=== PATIENT | male | born 1940 ===

== ENCOUNTER 2024-05-21 08:09 | Observation (INO) ==
[~2024-05-21 08:09] MED LIST: Metoclopramide 5 MG/ML VIAL (10 mg) IV PRN; NS 0.45% 1000 ml BAG 1,000 ML IV SCH; Naloxone 0.4 mg VIAL 0.4 mg/ml 1 ml VIAL IV PRN; Ondansetron 4 mg VIAL 2 MG/ML 2 ml VIAL IV PRN; fentaNYL 100 mcg/2 ml 50 MCG/ML VIAL IV PRN
[2024-05-21] MEDS ORDERED: Ondansetron 4 mg VIAL 2 MG/ML 2 ml VIAL IV PRN (09:05)
[2024-05-21 09:16] LABS: Rapid COVID-19 Molecular Undetected (Undetected)
[2024-05-21] MEDS ORDERED: fentaNYL 100 mcg/2 ml 50 MCG/ML VIAL ONE ×2 (09:33→11:28)
[2024-05-21] MEDS ORDERED: Propofol 10 MG/ML 20 ML BTL ONE ×2 (09:33→10:41)
[2024-05-21] MEDS ORDERED: Midazolam 2 mg/2 ml VIAL 1 mg/ml 2 ml VIAL (2 mg) ONE (09:33)
[2024-05-21] MEDS ORDERED: Lidocaine 2% PF 5 ML VIAL ONE (09:33)
[2024-05-21] MEDS: Buffered Lidocaine 1% SYRIN 1 ml INTRADERM ONE (09:34)
[2024-05-21] MEDS: Lactated Ringers 1000 ml BAG 1,000 ML IV SCH (09:34)
[2024-05-21] MEDS: Scopolamine 1 mg/72hr PATCH TRANSDERM ONE (09:35)
[2024-05-21] MEDS ORDERED: BELLADONNA/OPIUM Rectal SUPP 1 EACH SUPP PR ONE ×2 (09:53→12:26)
[2024-05-21] MEDS ORDERED: Ondansetron 4 mg VIAL 2 MG/ML 2 ml VIAL ONE (10:41)
[2024-05-21] MEDS ORDERED: Dexamethasone IV 4 MG/ML VIAL 1 ml VIAL ONE (10:41)
[2024-05-21] MEDS ORDERED: Dextrose 50% Syringe 50 ml 25 GM/50 ML SYRINGE IV PUSH PRN (14:12)
[2024-05-21] MEDS: Acetaminophen IV 1 GM/100ML 1,000 MG/100 ML BAG IV ONE (14:41)
[2024-05-21] MEDS: Ampicillin ADVAN 2 GM in NS 0.9% 100 ML IVPB ONE (14:44)
[2024-05-21] MEDS: NS 0.9% IVPB ONE (14:44)
[2024-05-21] MEDS: GENTAMICIN ADULT IVPB ONE (14:44)
[2024-05-21] MEDS: NS 0.9% 1000 ml BAG 1,000 ML IV SCH (14:49)
[2024-05-21] MEDS: Neomycin/Polym/Bacit TOP OINT 15 GM TOPICAL SCH (17:37)
[2024-05-21] MEDS: Magnesium Hydroxide LIQ 30 ML UDC PO SCH (21:30)
[2024-05-22 07:42] LABS: Hematocrit 33.3 % (38-53); Hemoglobin 11.3 g/dL (13.2-16.3); Mean Corpuscular Hemoglobin 28.6 pg (27-33); Mean Corpuscular Hgb Conc 33.9 g/dL (31-36); Mean Corpuscular Volume 84.6 fL (80-97); Mean Platelet Volume 8.2 fL (7.5-11.2); Platelet Count 265 10^3/uL (150-450); Red Blood Count 3.93 10^6/uL (4.06-5.63); Red Cell Distribution Width 14.8 % (12-17); White Blood Count 10.1 10^3/uL (3.6-10.2)
[2024-05-22 08:28] LABS: Anion Gap 13 mmol/L (2-16); Blood Urea Nitrogen 19 mg/dL (6-24); CO2 Carbon Dioxide 21 mmol/L (22-32); Calcium 8.5 mg/dL (8.6-10.3); Chloride 101 mmol/L (101-111); Creatinine, Serum 1.14 mg/dL (0.67-1.17); Glucose 158 mg/dL (70-100); Sodium 135 mmol/L (135-145); eGFR CKD-EPI 64.2 (>60)
[2024-05-22 08:45] LABS: Magnesium 1.6 mg/dL (1.9-2.7); Potassium Redraw 4.9 mmol/L (3.5-5.0)
== END 2024-05-22 10:55 | disposition home or self-care (01) ==
LOC: SSU 08:09 → OR 08:09
PROVIDERS: ADMIT Urology; ATTEND Urology